=== PATIENT | female | born 1980 | race Caucasian/White ===

== ENCOUNTER 2016-08-30 13:39 | Outpatient (CLI) | payer OTHER ==
--- NOTE | 2016-08-30 14:31 | DIAGNOSTIC IMAGING REPORT ---
PROCEDURE: CT ABDOMEN/PELVIS W/O CONTRAST INDICATION: RLQ PAIN TECHNIQUE: Noncontrast axial images were obtained of the entire abdomen and pelvis with sagittal and coronal reformations. COMPARISON: None. FINDINGS: ABDOMEN: Lung bases are clear. Heart size is normal. Liver, gallbladder, pancreas, spleen, adrenal glands, kidneys and abdominal aorta are normal. Multiple fluid-filled loops of small bowel with fluid in the ascending colon. PELVIS: Normal appendix. Distended bladder. 5.5 cm right adnexal cyst. Uterus and left adnexa are unremarkable. Bilateral fallopian tube occlusions . No inflammatory changes or free fluid. Bones are unremarkable. IMPRESSION: 1. 5.5 cm right adnexal cyst. Ovarian cyst size makes it more susceptible to torsion and pelvic ultrasound may be useful for further evaluation. 2. Distended bladder 3. Findings suggestive of enterocolitis 4. Results discussed with Dr. Castellanos All CT scans at this facility use dose modulation, iterative reconstruction, and/or weight-based dosing when appropriate to reduce radiation dose to as low as reasonably achievable.
== END 2016-08-30 23:00 ==
LOC: CT SRH 13:39
DX: R10.31 Right lower quadrant pain (principal); R93.5 Abnormal findings on diagnostic imaging of other abdominal regions, including retroperitoneum